=== PATIENT | female | born 1935 | race Caucasian/White ===

== ENCOUNTER → 2017-02-09 13:39 | Outpatient (CLI) | payer MEDICARE | END | disposition home or self-care (01) | LOC: D.CT 02-03 08:00 → D.RT 13:39 | DX: R06.09 Other forms of dyspnea (principal) ==

== ENCOUNTER → 2017-05-28 12:40 | Outpatient (CLI) | payer MEDICARE | END | disposition home or self-care (01) | LOC: D.RT 12:40 | DX: R06.09 Other forms of dyspnea (principal) ==

== ENCOUNTER → 2017-12-09 13:25 | Outpatient (CLI) | payer MEDICARE | END | disposition home or self-care (01) | LOC: D.NM 13:00 | DX: M25.562 Pain in left knee (principal) ==